=== PATIENT | male | born 2000 | race Two or more races ===

== ENCOUNTER 2023-12-27 07:46 | Emergency (ER) | payer OTHER ==
[~2023-12-27] VITALS: Ht 175.3 cm; Wt 111.1 kg
[2023-12-27] MEDS ORDERED: METHYLPREDNISOLONE SOD SUCC 40 MG VIAL IM ONE (08:45)
[2023-12-27] MEDS ORDERED: BENZONATATE 100 MG CAPSULE PO ONE (08:45)
[2023-12-27] MEDS ORDERED: METHYLPREDNISOLONE SOD SUCC 40 MG VIAL ONE (08:45)
[2023-12-27] MEDS ORDERED: BENZONATATE200 M1 PO (10:25)
== END 2023-12-27 10:39 | disposition home or self-care (01) ==
LOC: ER 07:47
DX: J00 Acute nasopharyngitis [common cold] (principal); J45.901 Unspecified asthma with (acute) exacerbation; Z20.822 Contact with and (suspected) exposure to COVID-19; E11.9 Type 2 diabetes mellitus without complications
CPT/HCPCS: 36415; 96372; 99282; J3490